=== PATIENT | female | born 2000 | race Caucasian/White ===

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

== ENCOUNTER 2023-07-08 12:37 | Emergency (ER) | payer MEDICAID ==
[~2023-07-08] VITALS: Ht 165.1 cm; Wt 59.0 kg
[2023-07-08 12:44] VITALS: O2SAT 99
[2023-07-08] MEDS: FLUORESCEIN SODIUM 1MG/STRIP LEFTEYE ONE (13:00)
[2023-07-08] MEDS: TETRACAINE 0.5% OPHTH DROPS 4ML LEFTEYE ONE (13:00)
[2023-07-08] MEDS ORDERED: ERYT1OIN6 EACHEYE (14:01)
[2023-07-08 14:42] VITALS: BP 114/74; PULSE 88; RESP 16; TEMP 98.9
== END 2023-07-08 14:45 | disposition home or self-care (01) ==
LOC: ER 12:37
DX: S05.92XA Unspecified injury of left eye and orbit, initial encounter (principal); Z90.49 Acquired absence of other specified parts of digestive tract; X58.XXXA Exposure to other specified factors, initial encounter; Y93.89 Activity, other specified; Y92.89 Other specified places as the place of occurrence of the external cause; Y99.8 Other external cause status
CPT/HCPCS: 99282